=== PATIENT | male | born 1980 | race American Indian/Alaskan Native ===

== ENCOUNTER 2019-06-07 23:40 | Emergency (ER) | payer SELFPAY ==
[2019-06-08] MEDS ORDERED: IBUPROFEN PO ONE (01:52)
[2019-06-08] MEDS ORDERED: BACTRIM DS PO ONE (01:52)
[2019-06-08] MEDS ORDERED: TYLENOL PO ONE (01:52)
--- NOTE | 2019-06-08 01:56 | Emergency Department Report ---
ED General Adult HPI - General Chief complaint: Skin Rash Stated complaint: PENILE PAIN Time Seen by Provider: 06/08/19 01:52 Source: patient Mode of arrival: Ambulatory Limitations: No Limitations - History of Present Illness Initial comments: Patient is a 38-year-old, male with a history of jji-pyiixle-uifwhzeza diabetes who presents to the ED with complaint of acute onset persistent severe multiple erythematous maculopapular nonfluctuant rashes with pain on this pubic area for the last 3 days. Patient denies fever, chills, nausea, vomiting, dizziness, cough, dysuria, urinary frequency and urgency, testicular pain, penile discharge, headache, chest pain, shortness of breath or back pain. Patient states that he has been using pxgx-vul-ndfsbvr remedies with no relief. MD Complaint: suprapubic erythematous maculopapular rashes -: Sudden, days(s) (3) Location: pelvis Radiation: non-radiation Severity scale (0 -10): 5 Quality: burning, aching, sharp Consistency: constant Improves with: none Worsens with: none Associated Symptoms: denies other symptoms, rash (multiple erythematous maculopapular rash on the pubic area). denies: confusion, chest pain, cough, diaphoresis, fever/chills, headaches, loss of appetite, malaise, seizure, shortness of breath, syncope Treatments Prior to Arrival: none - Related Data Previous Rx's Medication Instructions Recorded Last Taken Type Clindamycin [Clindamycin CAP] 300 mg PO Q8HR #60 capsule 06/08/19 Unknown Rx Ibuprofen [Motrin] 600 mg PO Q8H PRN #24 tablet 06/08/19 Unknown Rx Sulfamethoxazole/Trimethoprim 1 each PO Q12H #20 tablet 06/08/19 Unknown Rx [Bactrim DS TAB] metFORMIN [Glucophage] 500 mg PO BID #60 tablet 06/08/19 Unknown Rx Allergies Allergy/AdvReac Type Severity Reaction Status Date / Time No Known Allergies Allergy Unverified 08/07/13 10:12 ED Review of Systems ROS: Stated complaint: PENILE PAIN Other details as noted in HPI Constitutional: denies: chills, fever Eyes: denies: eye pain, eye discharge, vision change ENT: denies: ear pain, throat pain Respiratory: denies: cough, shortness of breath, wheezing Cardiovascular: denies: chest pain, palpitations Endocrine: no symptoms reported Gastrointestinal: denies: abdominal pain, nausea, diarrhea Genitourinary: denies: urgency, dysuria Musculoskeletal: denies: back pain, joint swelling, arthralgia Skin: rash (multiple erythematous maculopapular tender nonfluctuant rashes on the pubic area.), change in color, pruritus. denies: lesions Neurological: denies: headache, weakness, paresthesias Psychiatric: denies: anxiety, depression Hematological/Lymphatic: denies: easy bleeding, easy bruising ED Past Medical Hx - Past Medical History Previous Medical History?: Yes Hx Diabetes: Yes - Surgical History Past Surgical History?: No - Social History Smoking Status: Current Every Day Smoker Substance Use Type: Alcohol - Medications Home Medications: Home Medications Medication Instructions Recorded Confirmed Last Taken Type Clindamycin [Clindamycin CAP] 300 mg PO Q8HR #60 capsule 06/08/19 Unknown Rx Ibuprofen [Motrin] 600 mg PO Q8H PRN #24 tablet 06/08/19 Unknown Rx Sulfamethoxazole/Trimethoprim 1 each PO Q12H #20 tablet 06/08/19 Unknown Rx [Bactrim DS TAB] metFORMIN [Glucophage] 500 mg PO BID #60 tablet 06/08/19 Unknown Rx ED Physical Exam - General Limitations: No Limitations General appearance: alert, in no apparent distress - Head Head exam: Present: atraumatic, normocephalic, normal inspection - Eye Eye exam: Present: normal appearance, PERRL, EOMI Pupils: Present: normal accommodation - ENT ENT exam: Present: normal exam, normal orophraynx, mucous membranes moist, TM's normal bilaterally, normal external ear exam - Neck Neck exam: Present: normal inspection, full ROM. Absent: tenderness, meningismus, lymphadenopathy, thyromegaly - Respiratory Respiratory exam: Present: normal lung sounds bilaterally. Absent: respiratory distress, wheezes, rales, rhonchi, chest wall tenderness, accessory muscle use, prolonged expiratory - Cardiovascular Cardiovascular Exam: Present: regular rate, normal rhythm, normal heart sounds. Absent: systolic murmur, diastolic murmur, rubs, gallop - GI/Abdominal GI/Abdominal exam: Present: soft, normal bowel sounds. Absent: distended, tenderness, guarding, rebound, hyperactive bowel sounds, hypoactive bowel sounds, organomegaly, mass - Rectal Rectal exam: Present: deferred - Extremities Exam Extremities exam: Present: normal inspection, full ROM, normal capillary refill - Back Exam Back exam: Present: normal inspection, full ROM. Absent: tenderness, CVA tenderness (R), CVA tenderness (L), muscle spasm, paraspinal tenderness, vertebral tenderness - Neurological Exam Neurological exam: Present: alert, oriented X3, CN II-XII intact, normal gait, motor sensory deficit - Psychiatric Psychiatric exam: Present: normal affect, normal mood - Skin Skin exam: Present: warm, dry, intact, normal color, rash (multiple erythematous maculopapular nonfluctuant rashes in the pubic area), erythema. Absent: petechiae, abrasion, ecchymosis, other ED Course Vital Signs 06/08/19 06/08/19 00:52 02:19 Temperature 98.5 F Pulse Rate 113 H 99 H Respiratory 18 18 Rate Blood Pressure 145/90 Blood Pressure 142/86 [Right] O2 Sat by Pulse 99 97 Oximetry - Reevaluation(s) Reevaluation #1: 06/08/19 01:58 This is a 38 year-old male who presented to the ED with multiple erythematous macular papular rashes on pubic area. Patient is alert and oriented 3, anxious and tachycardic but in no acute distress. Patient was started on antibiotics in the ED with pain medications. On reevaluation, the patient's pain is well-controlled and tachycardia also resolved. Patient was discharged home on pain medications and antibiotics and advised follow-up with his primary care physician in 7-10 days for reevaluation. Patient was also advised to return to the ED immediately if symptoms get worse. ED Medical Decision Making - Medical Decision Making This is a 38 year-old male who presented to the ED with multiple erythematous macular papular rashes on pubic area. Patient is alert and oriented 3, anxious and tachycardic but in no acute distress. Patient was started on antibiotics in the ED with pain medications. On reevaluation, the patient's pain is well-controlled and tachycardia also resolved. Patient was discharged home on pain medications and antibiotics and advised follow-up with his primary care physician in 7-10 days for reevaluation. Patient was also advised to return to the ED immediately if symptoms get worse. - Differential Diagnosis cellulitis, acute folliculitis; cutaneous abscess Critical care attestation.: If time is entered above; I have spent that time in minutes in the direct care of this critically ill patient, excluding procedure time. ED Disposition Clinical Impression: Acute folliculitis, Cellulitis of pubic region Disposition: TO HOME OR SELFCARE Is pt being admited?: No Does the pt Need Aspirin: No Condition: Stable Instructions: Cellulitis (ED), Folliculitis (ED) Additional Instructions: Take medications with food, drink plenty of fluids and follow-up with her primary care physician in 7-10 days for reevaluation. Return to the ED immediately if symptoms get worse. Prescriptions: Sulfamethoxazole/Trimethoprim [Bactrim DS TAB] 1 each PO Q12H #20 tablet Clindamycin [Clindamycin CAP] 300 mg PO Q8HR #60 capsule metFORMIN [Glucophage] 500 mg PO BID #60 tablet Ibuprofen [Motrin] 600 mg PO Q8H PRN #24 tablet PRN Reason: Pain Referrals: [facility] [Outside] - 3-5 Days Forms: Work/School Release Form(ED) Time of Disposition: 02: Print Language: LUXEMBOURGISH
[2019-06-08 02:20] VITALS: BP 142/86
== END 2019-06-08 02:27 | disposition home or self-care (01) ==
LOC: ED 23:40
DX: L03.319 Cellulitis of trunk, unspecified (principal); L73.9 Follicular disorder, unspecified; F17.200 Nicotine dependence, unspecified, uncomplicated; E11.9 Type 2 diabetes mellitus without complications; Z79.4 Long term (current) use of insulin

== ENCOUNTER 2020-06-23 13:41 | Emergency (ER) | payer SELFPAY ==
[2020-06-23 14:22] LABS: Eosinophils # (Auto) 0.1 K/mm3 (0.0-0.4); Eosinophils % (Auto) 2.1 % (0.0-4.3); Monocytes # (Auto) 0.4 K/mm3 (0.0-0.8); Monocytes % (Auto) 7.4 % (0.0-7.3)
[2020-06-23 14:49] LABS: Basophils % (Auto) 0.6 % (0.0-1.8); Lymphocytes # (Auto) 1.9 K/mm3 (1.2-5.4); Lymphocytes % (Auto) 35.1 % (13.4-35.0); Mean Corpuscular HGB Conc 36 % (32-34); Mean Corpuscular Volume 93 fl (84-94); Platelet Count 274 K/mm3 (140-440); Red Blood Count 4.64 M/mm3 (3.65-5.03); Red Cell Distribution Width 12.1 % (13.2-15.2)
[2020-06-23 14:55] LABS: Hematocrit 43.1 % (35.5-45.6); Hemoglobin 15.6 gm/dl (11.8-15.2)
[2020-06-23 15:01] LABS: BUN/Creatinine Ratio 14; Blood Urea Nitrogen 14 mg/dL (9-20); Calcium 9.4 mg/dL (8.4-10.2); Hemolysis Index 36
--- NOTE | 2020-06-23 17:05 | Emergency Department Report ---
ED General Adult HPI - General Chief complaint: Neuro Symptoms/Deficit Stated complaint: LEFT ARM WEAKNESS Time Seen by Provider: 06/23/20 16:35 Source: patient Mode of arrival: Ambulatory Limitations: No Limitations - History of Present Illness Initial comments: Patient is a 39-year-old male presents emergency room complaints of tingling to the left extremity that began 2 days ago. He states that it feels like a tzkf-jkb-jpxbfai sensation. He denies any headache, vision changes, neck pain, shoulder pain, gait disturbance, speech disturbance, weakness. He states that he has had this occur in the past when he he accidentally slept on his arm but it usually goes away and this has lasted longer. He denies any pain in the wrist. He denies any fall or injury. He has a past medical history of diabetes and is on metformin. No allergies to medications. 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 - Related Data Previous Rx's Medication Instructions Recorded Last Taken Type Clindamycin [Clindamycin CAP] 300 mg PO Q8HR #60 capsule 06/08/19 Unknown Rx Ibuprofen [Motrin] 600 mg PO Q8H PRN #24 tablet 06/08/19 Unknown Rx Sulfamethoxazole/Trimethoprim 1 each PO Q12H #20 tablet 06/08/19 Unknown Rx [Bactrim DS TAB] metFORMIN [Glucophage] 500 mg PO BID #60 tablet 06/08/19 Unknown Rx Gabapentin 300 mg PO Q8HR #20 capsule 06/23/20 Unknown Rx Allergies Allergy/AdvReac Type Severity Reaction Status Date / Time No Known Allergies Allergy Unverified 08/07/13 10:12 ED Review of Systems ROS: Stated complaint: LEFT ARM WEAKNESS Other details as noted in HPI Comment: All other systems reviewed and negative ED Past Medical Hx - Past Medical History Previous Medical History?: Yes Hx Diabetes: Yes - Surgical History Past Surgical History?: No - Social History Smoking Status: Current Every Day Smoker Substance Use Type: Alcohol - Medications Home Medications: Home Medications Medication Instructions Recorded Confirmed Last Taken Type Clindamycin [Clindamycin CAP] 300 mg PO Q8HR #60 capsule 06/08/19 Unknown Rx Ibuprofen [Motrin] 600 mg PO Q8H PRN #24 tablet 06/08/19 Unknown Rx Sulfamethoxazole/Trimethoprim 1 each PO Q12H #20 tablet 06/08/19 Unknown Rx [Bactrim DS TAB] metFORMIN [Glucophage] 500 mg PO BID #60 tablet 06/08/19 Unknown Rx Gabapentin 300 mg PO Q8HR #20 capsule 06/23/20 Unknown Rx ED Physical Exam - General Limitations: No Limitations General appearance: alert, in no apparent distress - Head Head exam: Present: atraumatic, normocephalic - Eye Eye exam: Present: normal appearance, PERRL, EOMI. Absent: conjunctival injection, nystagmus, periorbital swelling, periorbital tenderness Pupils: Present: normal accommodation - Neck Neck exam: Present: normal inspection, full ROM. Absent: tenderness - Respiratory Respiratory exam: Present: normal lung sounds bilaterally. Absent: respiratory distress, wheezes, rales, rhonchi, stridor, chest wall tenderness, accessory muscle use, decreased breath sounds, prolonged expiratory - Cardiovascular Cardiovascular Exam: Present: regular rate, normal rhythm, normal heart sounds. Absent: systolic murmur, diastolic murmur, rubs, gallop - Extremities Exam Extremities exam: Present: normal capillary refill, other (no BUE edema). Absent: pedal edema, joint swelling, calf tenderness - Neurological Exam Neurological exam: Present: alert, oriented X3, CN II-XII intact, normal gait, other (normal finger to nose, normal heel to nelson, 5/5 muscle strength in the BUE/BLE, no pronator drift, no facial asymmetry, pt has slightly decreased sensation to the left thumb, index finger, and middle finger, sensation is n ormal in forearm and upper arm, 2+ distal pulses) - Psychiatric Psychiatric exam: Present: normal affect, normal mood - Skin Skin exam: Present: warm, dry, intact ED Course Vital Signs 06/23/20 06/23/20 06/23/20 13:43 13:47 18:50 Temperature 98.3 F 97.7 F Pulse Rate 113 H 113 H 93 H Respiratory 16 18 16 Rate Blood Pressure 135/84 135/84 Blood Pressure 157/102 [Left] O2 Sat by Pulse 97 98 100 Oximetry ED Medical Decision Making - Lab Data Result diagrams: 06/23/20 14:08 06/23/20 14:08 Lab Results 06/23/20 06/23/20 06/23/20 Range/Units 14:02 14:08 14:08 WBC 5.4 (4.5-11.0) K/mm3 RBC 4.64 (3.65-5.03) M/mm3 Hgb 15.6 H (11.8-15.2) gm/dl Hct 43.1 (35.5-45.6) % MCV 93 (84-94) fl MCH 34 H (28-32) pg MCHC 36 H (32-34) % RDW 12.1 L (13.2-15.2) % Plt Count 274 (140-440) K/mm3 Lymph % (Auto) 35.1 H (13.4-35.0) % Sunflower % (Auto) 7.4 H (0.0-7.3) % Eos % (Auto) 2.1 (0.0-4.3) % Baso % (Auto) 0.6 (0.0-1.8) % Lymph # 1.9 (1.2-5.4) K/mm3 Sunflower # 0.4 (0.0-0.8) K/mm3 Eos # 0.1 (0.0-0.4) K/mm3 Baso # 0.0 (0.0-0.1) K/mm3 Seg Neutrophils % 54.3 (40.0-70.0) % Seg Neutrophils # 3.0 (1.8-7.7) K/mm3 Sodium 138 (137-145) mmol/L Potassium 4.3 (3.6-5.0) mmol/L Chloride 97.6 L (98-107) mmol/L Carbon Dioxide 23 (22-30) mmol/L Anion Gap 22 mmol/L BUN 14 (9-20) mg/dL Creatinine 1.0 (0.8-1.3) mg/dL Estimated GFR > 60 ml/min BUN/Creatinine Ratio 14 % Glucose 256 H (75-100) mg/dL POC Glucose 227 H (70-105) Calcium 9.4 (8.4-10.2) mg/dL Magnesium 2.10 (1.7-2.3) mg/dL Vital Signs 06/23/20 06/23/20 06/23/20 13:43 13:47 18:50 Temperature 98.3 F 97.7 F Pulse Rate 113 H 113 H 93 H Respiratory 16 18 16 Rate Blood Pressure 135/84 135/84 Blood Pressure 157/102 [Left] O2 Sat by Pulse 97 98 100 Oximetry - Radiology Data Radiology results: report reviewed CT HEAD WITHOUT CONTRAST INDICATION / CLINICAL INFORMATION: Sensory disturbance with left upper extremity paresthesia. TECHNIQUE: All CT scans at this location are performed using CT dose reduction for ALARA by means of automated exposure control. COMPARISON: None available. FINDINGS: HEMORRHAGE: No evidence of intracranial hemorrhage or extra-axial fluid col lection. EXTRA-AXIAL SPACES: Cortical sulci, sylvian fissures and basilar cisterns have an unremarkable appearance. VENTRICULAR SYSTEM: The ventricular system is of normal size and configuration. CEREBRAL PARENCHYMA: No areas of abnormal brain parenchymal attenuation are identified. There is no indication of recent infarction. MIDLINE SHIFT OR HERNIATION: There is no mass effect. CEREBELLUM / BRAINSTEM: Brainstem and cerebellum have an unremarkable appearance. MIDLINE STRUCTURES:No abnormalities of the pituitary gland or pineal region are identified. INTRACRANIAL VESSELS:No abnormalities are identified on this noncontrast head CT. ORBITS: visualized portions of the orbits have an unremarkable appearance. SOFT TISSUES of HEAD: No significant abnormality. CALVARIUM: Evaluation of bone windows reveals no abnormalities. PARANASAL SINUSES / MASTOID AIR CELLS: Mucosal disease is present in the left sphenoid sinus. Maxillary sinuses are largely excluded. Paranasal sinuses and mastoid air cells are otherwise clear. IMPRESSION: 1. No intracranial abnormality on head CT without contrast. Signer Name: Reilly Marx MD Signed: 06/23/2020 6:15 PM Workstation Name: [id number] Transcribed By: Dictated By: Reilly Marx MD Electronically Authenticated By: Reilly Marx MD Signed Date/Time: 06/23/201814 DD/ 13 TD/TT: - Medical Decision Making Patient is a 39-year-old male presents emergency room complaints of tingling to the left extremity that began 2 days ago. He states that it feels like a pins-a nd-needles sensation. He denies any headache, vision changes, neck pain, shoulder pain, gait disturbance, speech disturbance, weakness. He states that he has had this occur in the past when he he accidentally slept on his arm but it usually goes away and this has lasted longer. He denies any pain in the wrist. He denies any fall or injury. He has a past medical history of diabetes and is on metformin. No allergies to medications. 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 Initial triage vitals with tachycardia which improved to normal upon repeat. On exam:normal finger to nose, normal heel to nelson, 5/5 muscle strength in the BUE/BLE, no pronator drift, no facial asymmetry, pt has slightly decreased sensation to the left thumb, index finger, and middle finger, sensation is normal in forearm and upper arm, 2+ distal pulses. Examination could be related to diabetic neuropathy versus carpal tunnel versus median nerve neuropathy. CT head imaging ordered to rule out any intracranial process and shows 1. No intracranial abnormality on head CT without contrast. Labs ordered prior to my examination with elevated blood glucose but otherwise normal. Patient given medications while in the emergency department as he did not drive. Patient will be referred to a neurologist. Patient referred to a primary care physician for [place] and for better glycemic control. Patient given prescription for gabapentin. Advised patient Please take medication as prescribed. Please follow-up with a primary care doctor. Please follow the diet for diabetes, eat a low sugar/low carbohydrate diet. Increase your water intake. Please follow- up with a neurologist. Return to emergency room for any new or worsening symptoms. Critical care attestation.: If time is entered above; I have spent that time in minutes in the direct care of this critically ill patient, excluding procedure time. ED Disposition Clinical Impression: Paresthesias in left hand, Hyperglycemia Disposition: DC-01 TO HOME OR SELFCARE Is pt being admited?: No Does the pt Need Aspirin: No Condition: Stable Instructions: Diabetic Neuropathy (ED), Paresthesia (ED), Diabetic Hyperglycemia (ED) Additional Instructions: Please take medication as prescribed. Please follow-up with a primary care doctor. Please follow the diet for diabetes, eat a low sugar/low carbohydrate diet. Increase your water intake. Please follow-up with a neurologist. Return to emergency room for any new or worsening symptoms. Prescriptions: Gabapentin 300 mg PO Q8HR #20 capsule Referrals: CHLOE EDUARDO MD [Staff Physician] - 2-3 Days [facility] [Provider Group] - 2-[address] [facility] [Outside] - 2-3 Days ARUN MCCLAIN MD [Referring] - 2-3 Days MONIQUE WAGNER MD [Staff Physician] - 2-3 Days Forms: Work/School Release Form(ED) Time of Disposition: 18:25 Print Language: UKRAINIAN
[2020-06-23] MEDS ORDERED: dexAMETHasone 4 MG/ML VIAL IM ONE (17:14)
[2020-06-23] MEDS ORDERED: GABAPENTIN 300 MG CAP PO ONE (17:14)
--- NOTE | 2020-06-23 18:19 | Cat Scan Report ---
CT HEAD WITHOUT CONTRAST INDICATION / CLINICAL INFORMATION: Sensory disturbance with left upper extremity paresthesia. TECHNIQUE: All CT scans at this location are performed using CT dose reduction for ALARA by means of automated e xposure control. COMPARISON: None available. FINDINGS: HEMORRHAGE: No evidence of intracranial hemorrhage or extra-axial fluid collection. EXTRA-AXIAL SPACES: Cortical sulci, sylvian fissures and basilar cisterns have an unremarkable appear ance. VENTRICULAR SYSTEM: The ventricular system is of normal size and configuration. CEREBRAL PARENCHYMA: No areas of abnormal brain parenchymal attenuation are identified. There is no i ndication of recent infarction. MIDLINE SHIFT OR HERNIATION: There is no mass effect. CEREBELLUM / BRAINSTEM: Brainstem and cerebellum have an unremarkable appearance. MIDLINE STRUCTURES:No abnormalities of the pituitary gland or pineal region are identified. INTRACRANIAL VESSELS:No abnormalities are identified on this noncontrast head CT. ORBITS: visualized portions of the orbits have an unremarkable appearance. SOFT TISSUES of HEAD: No significant abnormality. CALVARIUM: Evaluation of bone windows reveals no abnormalities. PARANASAL SINUSES / MASTOID AIR CELLS: Mucosal disease is present in the left sphenoid sinus. Maxilla ry sinuses are largely excluded. Paranasal sinuses and mastoid air cells are otherwise clear. IMPRESSION: 1. No intracranial abnormality on head CT without contrast. Signer Name: Reilly Marx MD Signed: 06/23/2020 6:15 PM Workstation Name: [id number]
[2020-06-23 18:51] VITALS: BP 157/102
== END 2020-06-23 18:55 | disposition home or self-care (01) ==
LOC: ED 13:41
DX: E11.65 Type 2 diabetes mellitus with hyperglycemia (principal); R20.2 Paresthesia of skin; F17.200 Nicotine dependence, unspecified, uncomplicated; Z79.899 Other long term (current) drug therapy
CPT/HCPCS: 36415; 70450; 80048; 82962; 83735; 85025; 96372; 99284; J1100

== ENCOUNTER 2021-05-11 17:48 | Emergency (ER) | payer SELFPAY ==
[2021-05-11 18:49] VITALS: BP 147/87
[2021-05-11] MEDS ORDERED: DICYCLOMINE 20 MG TAB PO ONE (20:25)
[2021-05-11] MEDS ORDERED: FAMOTIDINE 20 MG TAB PO ONE (20:25)
[2021-05-11] MEDS ORDERED: ONDANSETRON 4 MG ODT TAB PO ONE (20:25)
--- NOTE | 2021-05-11 20:28 | Event Note ---
ED Screening Note Date of service: 05/11/21 Time: 20:26 ED Screening Note: Patient is a 40-year-old -[place] male with a history of pgt-lczcezv-favfiftgf diabetes and chronic alcohol and tobacco abuse who presents to the ED with acute onset persistent severe intractable nausea and vomiting and epigastric pain for the last 12 hours. Patient states that he has had multiple episodes of nausea and vomiting and that he has not been able to eat anything or keep anything by mouth in the last 12 hours. Patient admits to heavy alcohol consumption 24 hours ago at a [employer]. Patient also complains of left lower back pain and chest pain for the last 6 hours. Patient denies dysuria, urinary frequency and urgency, testicular pain, fever, chills, diarrhea, shortness of breath, headache, dizziness, syncope or traumatic injury and headache. This initial assessment/diagnostic orders/clinical plan/treatment(s) is/are subject to change based on patients health status, clinical progression and re- assessment by fellow clinical providers in the ED. Further treatment and workup at subsequent clinical providers discretion. Patient/guardian urged not to elope from the ED as their condition may be serious if not clinically assessed and managed. Initial orders include: CBC, CMP, lipase, UA, chest x-ray, troponin
[2021-05-11 20:56] LABS: Basophils % (Auto) 0.5 % (0.0-1.8); Lymphocytes # (Auto) 1.4 K/mm3 (1.2-5.4); Lymphocytes % (Auto) 15.7 % (13.4-35.0); Mean Corpuscular HGB Conc 35 % (32-34); Mean Corpuscular Volume 94 fl (84-94); Monocytes # (Auto) 0.9 K/mm3 (0.0-0.8); Monocytes % (Auto) 9.9 % (0.0-7.3); Platelet Count 296 K/mm3 (140-440); Red Blood Count 4.88 M/mm3 (3.65-5.03); Red Cell Distribution Width 12.6 % (13.2-15.2)
[2021-05-11 21:15] LABS: Alanine Aminotransferase 24 units/L (7-56); Albumin 4.5 g/dL (3.9-5); BUN/Creatinine Ratio 14; Blood Urea Nitrogen 15 mg/dL (9-20); Calcium 9.9 mg/dL (8.4-10.2); Hemolysis Index 17
--- NOTE | 2021-05-11 21:15 | XRay Report ---
CHEST 2 VIEWS INDICATION / CLINICAL INFORMATION: chest wall pain. COMPARISON: None available. FINDINGS: SUPPORT DEVICES: None. HEART / MEDIASTINUM: No significant abnormality. LUNGS / PLEURA: No significant pulmonary or pleural abnormality. No pneumothorax. ADDITIONAL FINDINGS: No significant additional findings. No appreciable rib fractures. IMPRESSION: 1. No acute findings. Signer Name: Dat Willis MD Signed: 05/11/2021 9:11 PM Workstation Name: [id number]
--- NOTE | 2021-05-11 21:56 | Emergency Department Report ---
ED N/V/D HPI - General Chief complaint: Abdominal Pain Stated complaint: MEG, BACK PAIN, ABD PAIN Source: patient Mode of arrival: Ambulatory Limitations: No Limitations - History of Present Illness Initial comments: Patient is a 40-year-old -Malaysian male with a history of [id number] diabetes and chronic alcohol and tobacco abuse who presents to the ED with acute onset persistent severe intractable nausea and vomiting and epigastric pain for the last 12 hours. Patient states that he has had multiple episodes of nausea and vomiting and that he has not been able to eat anything or keep anything by mouth in the last 12 hours. Patient admits to heavy alcohol consumption 24 hours ago [facility]. Patient also complains of left lower back pain and chest pain for the last 6 hours. Patient denies dysuria, urinary frequency and urgency, testicular pain, fever, chills, diarrhea, shortness of breath, headache, dizziness, syncope or traumatic injury and headache. MD complaint: nausea, vomiting, abdominal pain (epigastric pain) -: Sudden, hour(s) (12) Description of Vomiting: food contents Associated Abdominal Pain: Yes (Mild epigastric pain) Location: epigastric Radiation: none Severity: moderate Pain Scale: 3 Quality: aching, dull Consistency: intermittent Improves with: none Worsens with: eating, vomiting Context: possible food poisoning, alcohol abuse (Heavy alcohol consumption 24 hours ago) Associated Symptoms: denies other symptoms, nausea/vomiting. denies: myalgias, chest pain, cough, diaphoresis, fever/chills, headaches, loss of appetite, malaise, dysuria, shortness of breath, syncope, weakness, other - Related Data Previous Rx's Medication Instructions Recorded Last Taken Type Clindamycin [Clindamycin CAP] 300 mg PO Q8HR #60 capsule 06/08/19 Unknown Rx Ibuprofen [Motrin] 600 mg PO Q8H PRN #24 tablet 06/08/19 Unknown Rx Sulfamethoxazole/Trimethoprim 1 each PO Q12H #20 tablet 06/08/19 Unknown Rx [Bactrim DS TAB] metFORMIN [Glucophage] 500 mg PO BID #60 tablet 06/08/19 Unknown Rx Gabapentin 300 mg PO Q8HR #20 capsule 06/23/20 Unknown Rx Dicyclomine [Bentyl] 20 mg PO Q6H PRN #30 tablet 05/11/21 Unknown Rx Famotidine [Pepcid] 20 mg PO BID #60 tablet 05/11/21 Unknown Rx Ondansetron [Zofran Odt] 4 mg PO Q6HR PRN #20 tab.rapdis 05/11/21 Unknown Rx Allergies Allergy/AdvReac Type Severity Reaction Status Date / Time No Known Allergies Allergy Unverified 08/07/13 10:12 ED Review of Systems ROS: Stated complaint: MEG, BACK PAIN, ABD PAIN Other details as noted in HPI Constitutional: denies: chills, fever Eyes: denies: eye pain, eye discharge, vision change ENT: denies: ear pain, throat pain Respiratory: denies: cough, shortness of breath, wheezing Cardiovascular: denies: chest pain, palpitations Endocrine: no symptoms reported Gastrointestinal: abdominal pain (Mild epigastric pain), nausea, vomiting. denies: diarrhea Genitourinary: denies: urgency, dysuria Musculoskeletal: denies: back pain, joint swelling, arthralgia Skin: denies: rash, lesions Neurological: denies: headache, weakness, paresthesias Psychiatric: denies: anxiety, depression Hematological/Lymphatic: denies: easy bleeding, easy bruising ED Past Medical Hx - Past Medical History Previous Medical History?: Yes Hx Diabetes: Yes - Surgical History Past Surgical History?: No - Social History Smoking Status: Heavy Tobacco Smoker Substance Use Type: None - Medications Home Medications: Home Medications Medication Instructions Recorded Confirmed Last Taken Type Clindamycin [Clindamycin CAP] 300 mg PO Q8HR #60 capsule 06/08/19 Unknown Rx Ibuprofen [Motrin] 600 mg PO Q8H PRN #24 tablet 06/08/19 Unknown Rx Sulfamethoxazole/Trimethoprim 1 each PO Q12H #20 tablet 06/08/19 Unknown Rx [Bactrim DS TAB] metFORMIN [Glucophage] 500 mg PO BID #60 tablet 06/08/19 Unknown Rx Gabapentin 300 mg PO Q8HR #20 capsule 06/23/20 Unknown Rx Dicyclomine [Bentyl] 20 mg PO Q6H PRN #30 tablet 05/11/21 Unknown Rx Famotidine [Pepcid] 20 mg PO BID #60 tablet 05/11/21 Unknown Rx Ondansetron [Zofran Odt] 4 mg PO Q6HR PRN #20 tab.rapdis 05/11/21 Unknown Rx ED Physical Exam - General Limitations: No Limitations General appearance: alert, in no apparent distress - Head Head exam: Present: atraumatic, normocephalic, normal inspection - Eye Eye exam: Present: normal appearance, PERRL, EOMI Pupils: Present: normal accommodation - ENT ENT exam: Present: normal exam, normal orophraynx, mucous membranes moist, TM's normal bilaterally, normal external ear exam - Neck Neck exam: Present: normal inspection, full ROM - Respiratory Respiratory exam: Present: normal lung sounds bilaterally. Absent: respiratory distress, wheezes, rhonchi, stridor, chest wall tenderness, accessory muscle use, decreased breath sounds - Cardiovascular Cardiovascular Exam: Present: normal rhythm, tachycardia, normal heart sounds. Absent: systolic murmur, diastolic murmur, rubs, gallop - GI/Abdominal GI/Abdominal exam: Present: soft, normal bowel sounds. Absent: tenderness, guarding, rebound, hyperactive bowel sounds, hypoactive bowel sounds, organomegaly - Rectal Rectal exam: Present: deferred - Extremities Exam Extremities exam: Present: normal inspection, full ROM, normal capillary refill - Back Exam Back exam: Present: normal inspection, full ROM. Absent: tenderness, CVA t enderness (R), CVA tenderness (L), muscle spasm, paraspinal tenderness, vertebral tenderness - Neurological Exam Neurological exam: Present: alert, oriented X3, CN II-XII intact, normal gait, reflexes normal - Psychiatric Psychiatric exam: Present: normal affect, normal mood, anxious - Skin Skin exam: Present: warm, dry, intact, normal color. Absent: rash ED Course Vital Signs 05/11/21 18:46 Temperature 97.4 F L Pulse Rate 110 H Respiratory 18 Rate Blood Pressure 147/87 O2 Sat by Pulse 99 Oximetry ED Medical Decision Making - Lab Data Result diagrams: 05/11/21 20:40 05/11/21 20:40 - Medical Decision Making This is a 40-year-old -Malaysian male with a history of [id number] diabetes and chronic alcohol and tobacco abuse who presents to the ED with acute onset persistent severe intractable nausea and vomiting and epigastric pain for the last 12 hours. Patient states that he has had multiple episodes of nausea and vomiting and that he has not been able to eat anything or keep anything by mouth in the last 12 hours. Patient admits to heavy alcohol consumption 24 hours ago [facility]. Patient also complains of left lower back pain and chest pain for the last 6 hours. In the ED, patient is alert and oriented x3 and is not in any distress but anxious, tachycardic and afebrile in triage. Lab test results were reviewed and are all nonactionable. Patient was treated for nausea and vomiting and also given antacids and antispasmodics in the ED. On reevaluation, patient's nausea and vomiting resolved medication. Patient was able to keep oral fluids in the ED and his tachycardia also resolved. Patient was discharged home on antiemetics, antacids and was advised to maintain a clear liquid diet for 12 to 24 hours, while taking medication as needed for nausea and vomiting. Patient was advised to follow-up with his primary care physician in 5 to 7 days for reevaluation. Patient is advised return to the ED immediately if symptoms get worse. - Differential Diagnosis Gastroenteritis; gastritis; pancreatitis; dehydration; GERD Critical care attestation.: If time is entered above; I have spent that time in minutes in the direct care of this critically ill patient, excluding procedure time. ED Disposition Clinical Impression: Viral gastroenteritis, Nausea and vomiting in adult patient GERD (gastroesophageal reflux disease) Qualifiers: Esophagitis presence: esophagitis presence not specified Qualified Code(s): K21.9 - Gastro-esophageal reflux disease without esophagitis Disposition: DC-01 TO HOME OR SELFCARE Is pt being admited?: No Does the pt Need Aspirin: No Condition: Stable Instructions: Viral Gastroenteritis, Adult, [id number], Nausea and Vomiting, Adult, [id number], Gastroesophageal Reflux Disease, Adult, [id number] Additional Instructions: All lab test results were reviewed and are all nonactionable. Therefore maintain a clear liquid diet for 12 to 24 hours, take medication with food, drink plenty of fluids and follow-up with your primary care physician in 5 to 7 days for reevaluation. Return to the ED immediately if symptoms get worse. Prescriptions: Dicyclomine [Bentyl] 20 mg PO Q6H PRN #30 tablet PRN Reason: Abdominal pain Famotidine [Pepcid] 20 mg PO BID #60 tablet Ondansetron [Zofran Odt] 4 mg PO Q6HR PRN #20 tab.rapdis PRN Reason: Nausea And Vomiting Referrals: [facility] [Provider Group] - 3-5 Days Forms: Work/School Release Form(ED) Time of Disposition: 21:57 Print Language: SWEDISH
== END 2021-05-11 22:50 | disposition home or self-care (01) ==
LOC: ED 17:48
DX: K21.9 Gastro-esophageal reflux disease without esophagitis (principal); A08.4 Viral intestinal infection, unspecified; R11.2 Nausea with vomiting, unspecified; E11.9 Type 2 diabetes mellitus without complications; F17.200 Nicotine dependence, unspecified, uncomplicated; Z79.899 Other long term (current) drug therapy
CPT/HCPCS: 36415; 71046; 80053; 83690; 85025; Q0162